=== PATIENT | male | born 1945 | race Caucasian/White ===

== ENCOUNTER 2016-09-23 06:23 | Day surgery (SDC) | payer OTHER ==
[~2016-09-23] VITALS: Ht 180.3 cm; Wt 83.0 kg
[2016-09-23 07:07] VITALS: BP 152/83
[2016-09-23 11:11] VITALS: BP 154/75
== END 2016-09-23 09:45 | disposition home or self-care (01) ==
LOC: DS 06:23 → OR 07:30 → DS 07:30
PROVIDERS: Ophthalmology
PROC: 08RK3JZ Replacement of Left Lens with Synthetic Substitute, Percutaneous Approach (ICD-10-PCS; principal; 2016-09-23 07:30)
DX: H25.012 Cortical age-related cataract, left eye (principal); E11.3599 Type 2 diabetes mellitus with proliferative diabetic retinopathy without macular edema, unspecified eye; I10 Essential (primary) hypertension
CPT/HCPCS: 82962; C1780; J0702; J1580; J2001; J2250; J2704; J3490; J7040